=== PATIENT | male | born 1960 | race Caucasian/White ===

== ENCOUNTER 2017-08-05 15:47 | Emergency (ER) | payer OTHER ==
[2017-08-05 15:56] VITALS: BP 144/85; PULSE 80; TEMP 98.4; BMI 25.8
--- NOTE | 2017-08-05 15:56 | PDOC ---
Rapid Medical Evaluation Chief Complaint: Back Pain Time Seen by Provider: 08/05/17 15:51 Medical Evaluation: Allergies Allergy/AdvReac Type Severity Reaction Status Date / Time No Known Allergies Allergy Verified 08/05/17 15:53 08/05/17 15:55 I have performed a brief in-person evaluation of this patient. The patient presents with a chief complaint of:L lower back x 1 week. No sxs , n/v/f/c. No trauma. Took motrin with no relief. Works construction Pertinent physical exam findings:Stable w/ unremarkable exam, able to bear weight I have ordered the following: The patient will proceed to the ED for further evaluation.
--- NOTE | 2017-08-05 17:45 | PDOC ---
History of Present Illness - General Chief Complaint: Back Pain Stated Complaint: LT HIP PAIN Time Seen by Provider: 08/05/17 15:51 History Source: Patient Exam Limitations: No Limitations - History of Present Illness Occurred: reports: last week Severity: reports: moderate Pain Location: reports: back (left lower back radiates to left buttock ) Method of Injury: Yes: unknown, other Modifying Factors: improves with: immobilization Past History - Past Medical History Allergies/Adverse Reactions: Allergies Allergy/AdvReac Type Severity Reaction Status Date / Time No Known Allergies Allergy Verified 08/05/17 15:53 Home Medications: Ambulatory Orders NK [No Known Home Medication] 08/05/17 COPD: No Other medical history: diverticulitis - Immunization History Immunization Up to Date: Yes - Suicide/Smoking/Psychosocial Hx Smoking History: Never smoked Information on smoking cessation initiated: No Hx Alcohol Use: No Drug/Substance Use Hx: No *Physical Exam - Vital Signs Last Vital Signs Temp Pulse Resp BP Pulse Ox 98.4 F 80 18 144/85 97 08/05/17 15:53 08/05/17 15:53 08/05/17 15:53 08/05/17 15:53 08/05/17 15:53 Medical Decision Making - Medical Decision Making 08/05/17 18:51 PLAN: toradol 60 mg IM now xray lumbar sacral lumbar spondylosis with posterior facet hypertrophy at L4-L5 , L5-S1 and S1-S2. There is moderate loss of intervertebral disc height at S1- S2 with endplate sclerosis and osteophyte formation per Dr. Raphael will discharge pt on naprosyn 500 mg q 12 hr prn pain # [address] Whalen *DC/Admit/Observation/Transfer Diagnosis at time of Disposition: Lumbar radicular pain - Discharge Dispostion Disposition: HOME Condition at time of disposition: Stable - Referrals Referrals: STAFF,NOT ON [Primary Care Provider] - Juan Whalen MD [Staff Physician] - - Patient Instructions Additional Instructions: Avoid any strenuous activities or exercise Return to emergency room if symptoms worsen any numbness of private area or legs or any loss of control of urine or bowel movements Follow-up with orthopedist as soon as possible for further evaluation Patient voiced understanding of discharge instructions and all questions were answered - Post Discharge Activity
[2017-08-05] MEDS ORDERED: KETOROLAC TROMETHAMINE 60 MG/2 ML VIAL IM ONE (17:48)
[2017-08-05] MEDS ORDERED: KETOROLAC TROMETHAMINE 60 MG/2 ML VIAL ONE (17:52)
== END 2017-08-05 18:56 | disposition home or self-care (01) ==
LOC: JERFT 15:47
PROC: 3E0233Z Introduction of Anti-inflammatory into Muscle, Percutaneous Approach (ICD-10-PCS; principal; 2017-08-05)
DX: M54.16 Radiculopathy, lumbar region (principal)
CPT/HCPCS: 72100-TC; 96372; 99281-25

== ENCOUNTER 2021-02-24 08:25 | Emergency (ER) | payer OTHER ==
[2021-02-24 08:31] VITALS: BP 133/82; PULSE 70; TEMP 98.2; BMI 27.8
[2021-02-24] MEDS ORDERED: KETOROLAC TROMETHAMINE 60 MG/2 ML VIAL ONE (08:40)
[2021-02-24] MEDS ORDERED: KETOROLAC TROMETHAMINE 60 MG/2 ML VIAL IM ONE (08:40)
== END 2021-02-24 09:03 | disposition home or self-care (01) ==
LOC: JERFT 08:25
PROC: 3E0233Z Introduction of Anti-inflammatory into Muscle, Percutaneous Approach (ICD-10-PCS; principal; 2021-02-24)
DX: M54.5 Low back pain (principal)
CPT/HCPCS: 99284-25

== ENCOUNTER 2023-01-26 15:09 | Emergency (ER) | payer OTHER ==
[2023-01-26 15:15] VITALS: BP 179/97; PULSE 80; RESP 18; TEMP 98.4; BMI 25.7
[2023-01-26] MEDS ORDERED: LIDOCAINE 5% TOPICAL PATCH TP ONE (16:02)
[2023-01-26] MEDS ORDERED: ACETAMINOPHEN 500 MG TABLET (FP) PO ONE (16:02)
[2023-01-26] MEDS ORDERED: ACETAMINOPHEN 500 MG TABLET (FP) ONE (16:24)
[2023-01-26] MEDS ORDERED: LIDOCAINE PATCH REMOVAL MC SCH (22:00)
== END 2023-01-26 18:31 | disposition home or self-care (01) ==
LOC: JER 15:09
DX: M54.16 Radiculopathy, lumbar region (principal)
CPT/HCPCS: 99283-25